=== PATIENT | female | born 1990 | race Caucasian/White ===

== ENCOUNTER → 2024-03-23 10:34 | Outpatient (REF) | payer BC, SELFPAY ==
[2024-03-26 08:15] LABS: HPV, High Risk Not Detected; HPV, High Risk Source Anal
== END ==
LOC: CLAB 10:34
PROVIDERS: ATTENDING PHYSICIAN Physician Assistant
DX: Z86.19 Personal history of other infectious and parasitic diseases (principal)
CPT/HCPCS: 87624; 88112